=== PATIENT | female | born 2000 | race Caucasian/White ===

== ENCOUNTER 2018-07-14 10:15 | Outpatient (CLI) | payer OTHER | END 2018-07-14 14:30 | disposition home or self-care (01) | LOC: OBT 10:15 → L-D 10:15 → OBT 14:30 | DX: O26.893 Other specified pregnancy related conditions, third trimester (principal); R10.2 Pelvic and perineal pain; Z3A.28 28 weeks gestation of pregnancy | CPT/HCPCS: 76815; 76817 ==

== ENCOUNTER 2018-09-25 01:40 | Inpatient (IN) | payer OTHER ==
[~2018-09-25 01:40] MED LIST: CARBOPROST 250 MCG INJ; METHYLERGONOVINE 0.2 MG INJ
[2018-09-25] MEDS ORDERED: MISOPROSTOL 200 MCG TAB PR ×2 (04:00→12:00)
[2018-09-25] MEDS ORDERED: IBUPROFEN 600 MG TAB PO (04:00)
[2018-09-25] MEDS ORDERED: METHYLERGONOVINE 0.2 MG INJ IM ×2 (04:00→12:00)
[2018-09-25] MEDS ORDERED: OXYTOCIN 30 UNITS/LR 500 ML IV ×3 (04:00→12:00)
[2018-09-25] MEDS ORDERED: CARBOPROST 250 MCG INJ IM (04:00)
[2018-09-25] MEDS ORDERED: BUTORPHANOL 2 MG INJ IV (04:00)
[2018-09-25] MEDS ORDERED: LIDOCAINE 1% (MPF) 30 ML INJ INJ (04:00)
[2018-09-25] MEDS ORDERED: ALBUTEROL HFA 8 GM INHALER INH (04:00)
[2018-09-25] MEDS ORDERED: MISOPROSTOL 50 MCG CAPSULE VAG (04:00)
[2018-09-25 05:07] LABS: ADD MAN DIFF? NO
[2018-09-25] MEDS: LACTATED RINGER'S 1,000 ML IV ×3 (05:08→19:56)
[2018-09-25 05:09] LABS: BASOPHILS % 0.4 % (0.0-2.0); EOSINOPHILS # 0.2 10^3/ul (0.0-0.5); EOSINOPHILS % 1.6 % (0.0-7.0); HEMATOCRIT 31.3 % (37.0-47.0); LYMPHOCYTES # 2.6 10^3/ul (0.8-2.9); LYMPHOCYTES % 27.1 % (18.0-55.0); MEAN CORPUSCULAR HEMOGLOBIN 25.6 pg (29.0-33.0); MEAN CORPUSCULAR HGB CONC 31.9 g/dl (32.0-37.0); MEAN CORPUSCULAR VOLUME 80.3 fl (72.0-104.0); MEAN PLATELET VOLUME 11.3 fl (7.4-10.4); NEUTROPHIL # 5.8 10^3/ul (1.6-7.5); NEUTROPHILS % 60.5 % (30.0-74.0); PLATELET COUNT 244 10^3/UL (140-415); RED CELL DISTRIBUTION WIDTH 16.1 % (11.5-14.5)
[2018-09-25 05:09] LABS: WHITE BLOOD COUNT 9.6 10^3/ul (4.8-10.8)
[2018-09-25] MEDS: CLINDAMYCIN 900 MG/D5W (PMX) 50 ML IVPB (05:09)
[2018-09-25 05:30] LABS: INR 0.95; PARTIAL THROMBOPLASTIN TIME 27.2 Sec (23.0-35.0); PROTIME 12.8 Sec (11.9-14.9)
[2018-09-25] MEDS: MISOPROSTOL 50 MCG CAPSULE PO (06:14)
[2018-09-25] MEDS ORDERED: TERBUTALINE 1 MG/ML INJ SC (06:30)
[2018-09-25] MEDS ORDERED: TERBUTALINE 1 ML (06:46)
[2018-09-25] MEDS ORDERED: ROCURONIUM 50 MG INJ (06:51)
[2018-09-25] MEDS ORDERED: NEOSTIGMINE 3 MG/3 ML SYRINGE (06:51)
[2018-09-25] MEDS ORDERED: MEPERIDINE 100 MG INJ (06:51)
[2018-09-25] MEDS ORDERED: SUCCINYLCHOLINE CHLORIDE 100 MG/5 ML SYG IV (06:51)
[2018-09-25] MEDS ORDERED: PROPOFOL 20 ML (06:51)
[2018-09-25] MEDS ORDERED: GLYCOPYRROLATE 0.4 MG INJ (06:51)
[2018-09-25] MEDS ORDERED: LIDOCAINE 2% (SDV) 5 ML INJ (06:51)
[2018-09-25] MEDS ORDERED: OXYTOCIN 10 UNIT INJ (06:59)
[2018-09-25] MEDS ORDERED: EPHEDrine 25 MG/5 ML SYG (07:09)
[2018-09-25] MEDS ORDERED: CEFAZOLIN 1 GM INJ (07:09)
[2018-09-25] MEDS ORDERED: ONDANSETRON 4 MG INJ (07:50)
[2018-09-25] MEDS ORDERED: METOCLOPRAMIDE 10 MG INJ (07:50)
[2018-09-25 07:56] LABS: CBV COHb 0.3 %; CBV Oxygen Sat 36.6 mmHG; CBV Total Hemglobin 19.5 g/dl; Cord Blood Venous AADO2 612.4 mmHg; Cord Blood Venous pO2 25.3 mmHG (15.0-45.0); Fraction OxyHgb Cord Venous 36.1 %; MODE VENT - AC; Site CORD
[2018-09-25 07:57] LABS: AADO2 Cord Arterial 603.7 mmHg; Arterial Cord Blood pCO2 91.3 mmHG (25-50); CBA Base Excess -15.8 mmol/L; CBA COHb 0.1 %; CBA Oxygen Sat 18.4 mmHG; CBA Total Hemglobin 19.2 g/dl; Fraction OxyHgb Cord Arterial 18.2 %; MODE VENT - AC; MetHgb Cord Arterial 1.2 %; Site CORD
[2018-09-25] MEDS ORDERED: KETOROLAC 30 MG INJ (08:33)
[2018-09-25] MEDS: OXYTOCIN 30 UNITS/LR 500 ML IV ×3 (08:58→13:56)
[2018-09-25] MEDS ORDERED: ONDANSETRON 4 MG INJ IV (09:00)
[2018-09-25] MEDS ORDERED: DIPHENHYDRAMINE 50 MG INJ IV (09:00)
[2018-09-25] MEDS ORDERED: OXYCODONE/ACETAMINOPHEN (5/325) TAB PO ×2 (09:00)
[2018-09-25] MEDS ORDERED: NALOXONE (0.4 MG/ML) INJ IV (09:00)
[2018-09-25 09:29] LABS: HAAIG REFLEX REFLEX FILED
[2018-09-25 09:40] LABS: HEPATITIS B SURFACE ANTIGEN NEGATIVE (NEGATIVE)
[2018-09-25] MEDS: DIPHENOXYLATE/ATROPINE TAB PO ×2 (10:20→11:30)
[2018-09-25 10:45] LABS: HEPATITIS B SURFACE ANTIBODY NEGATIVE (NEGATIVE)
[2018-09-25] MEDS: HYDROmorphONE 0.2 MG/ML PCA IV (11:08)
[2018-09-25 11:19] LABS: HEPATITIS B CORE ANTIBODY NEGATIVE (NEGATIVE); HEPATITIS C VIRAL ANTIBODY NEGATIVE (NEGATIVE); HIV 1&2 ANTIBODY NEGATIVE (NEGATIVE)
[2018-09-25 11:20] LABS: HEPATITIS B SURFACE ANTIGEN NEGATIVE (NEGATIVE)
[2018-09-25] MEDS: KETOROLAC 30 MG INJ IV ×2 (11:30→23:13)
[2018-09-25 11:47] LABS: AMPHETAMINE/METHAMPHETAMINE Negative (NEGATIVE); BARBITURATES Negative (NEGATIVE); BENZODIAZEPINES Negative (NEGATIVE); CANNABINOIDS Negative (NEGATIVE); COCAINE Negative (NEGATIVE); OPIATES Negative (NEGATIVE)
[2018-09-25] MEDS ORDERED: AL HYDROX/MG HYDROX/SIMETH 30 ML CUP PO (12:00)
[2018-09-25] MEDS ORDERED: NACL 0.9% 3 ML SYG IV (12:00)
[2018-09-25] MEDS ORDERED: METHYLERGONOVINE 0.2 MG TAB PO (12:00)
[2018-09-25 15:48] LABS: RAPID PLASMA REAGIN NONREACTIVE (NR)
[2018-09-25 20:01] LABS: ADD MAN DIFF? NO
[2018-09-25 20:05] LABS: ABNORMAL IP MESSAGE 1; MEAN CORPUSCULAR HEMOGLOBIN 25.3 pg (29.0-33.0); MEAN CORPUSCULAR VOLUME 79.1 fl (72.0-104.0); MEAN PLATELET VOLUME 11.7 fl (7.4-10.4); PLATELET COUNT 193 10^3/UL (140-415); RED BLOOD COUNT 2.53 10^6/ul (4.20-5.40); RED CELL DISTRIBUTION WIDTH 15.8 % (11.5-14.5)
[2018-09-25 20:05] LABS: WHITE BLOOD COUNT 11.5 10^3/ul (4.8-10.8)
[2018-09-25 20:15] LABS: HEMOGLOBIN 6.4 g/dl (12.0-16.0); POSITIVE DIFF @See below
[2018-09-25] MEDS: FERROUS SULFATE (EC) 325 MG TAB PO (20:59)
[2018-09-25 21:42] LABS: ANISOCYTOSIS 2+ (0-0); HYPOCHROMASIA 2+ (0-0); LYMPHOCYTES #M 1.1 10^3/ul (0.8-2.9); LYMPHOCYTES % (M) 10 % (18-55); MICROCYTOSIS 2+ (0-0); MONOCYTE #M 0.4 10^3/ul (0.3-0.9); MONOCYTES % (M) 4 % (0-13); PLATELET ESTIMATE NORMAL; SEGMENTED NEUTROPHILS (M) % 86 % (30-74)
[2018-09-26] MEDS: LACTATED RINGER'S 1,000 ML IV ×4 (02:26→19:56)
[2018-09-26] MEDS: KETOROLAC 30 MG INJ IV (05:30)
[2018-09-26] MEDS: IBUPROFEN 600 MG TAB PO ×4 (05:35→23:28)
[2018-09-26 08:14] LABS: ADD MAN DIFF? NO
[2018-09-26 08:27] LABS: ABNORMAL IP MESSAGE 1; BASOPHILS % 0.1 % (0.0-2.0); EOSINOPHILS # 0.1 10^3/ul (0.0-0.5); EOSINOPHILS % 0.5 % (0.0-7.0); HEMATOCRIT 17.9 % (37.0-47.0); LYMPHOCYTES # 1.2 10^3/ul (0.8-2.9); LYMPHOCYTES % 12.1 % (18.0-55.0); MEAN CORPUSCULAR HEMOGLOBIN 25.6 pg (29.0-33.0); MEAN CORPUSCULAR HGB CONC 31.8 g/dl (32.0-37.0); MEAN CORPUSCULAR VOLUME 80.3 fl (72.0-104.0); MEAN PLATELET VOLUME 11.7 fl (7.4-10.4); MONOCYTE # 0.8 10^3/ul (0.3-0.9); MONOCYTES % 8.8 % (0.0-13.0); NEUTROPHIL # 7.4 10^3/ul (1.6-7.5); NEUTROPHILS % 77.9 % (30.0-74.0); PLATELET COUNT 190 10^3/UL (140-415); RED BLOOD COUNT 2.23 10^6/ul (4.20-5.40)
[2018-09-26 08:27] LABS: WHITE BLOOD COUNT 9.5 10^3/ul (4.8-10.8)
[2018-09-26 08:45] LABS: HEMOGLOBIN 5.7 g/dl (12.0-16.0); POSITIVE DIFF @See below
[2018-09-26] MEDS: FERROUS SULFATE (EC) 325 MG TAB PO ×2 (09:08→20:42)
[2018-09-26] MEDS: PRENATAL VITAMIN PO (09:08)
[2018-09-26] MEDS: HYDROCODONE/APAP (5/325) TAB PO (10:55)
[2018-09-26 16:16] LABS: IMMEDIATE SPIN CROSSMATCH 1 2
[2018-09-26] MEDS: LANOLIN HPA 1 PKT TOP (17:32)
[2018-09-26 22:57] LABS: WHITE BLOOD COUNT 9.1 10^3/ul (4.8-10.8)
[2018-09-26 22:57] LABS: ADD MAN DIFF? NO; BASOPHILS % 0.3 % (0.0-2.0); EOSINOPHILS # 0.1 10^3/ul (0.0-0.5); EOSINOPHILS % 1.5 % (0.0-7.0); HEMATOCRIT 25.9 % (37.0-47.0); HEMOGLOBIN 8.5 g/dl (12.0-16.0); LYMPHOCYTES # 2.1 10^3/ul (0.8-2.9); LYMPHOCYTES % 22.9 % (18.0-55.0); MEAN CORPUSCULAR HEMOGLOBIN 26.6 pg (29.0-33.0); MEAN CORPUSCULAR HGB CONC 32.8 g/dl (32.0-37.0); MEAN CORPUSCULAR VOLUME 80.9 fl (72.0-104.0); MEAN PLATELET VOLUME 10.4 fl (7.4-10.4); MONOCYTE # 0.8 10^3/ul (0.3-0.9); MONOCYTES % 8.8 % (0.0-13.0); NEUTROPHIL # 5.9 10^3/ul (1.6-7.5); NEUTROPHILS % 65.7 % (30.0-74.0); PLATELET COUNT 206 10^3/UL (140-415); RED CELL DISTRIBUTION WIDTH 15.8 % (11.5-14.5)
[2018-09-27] MEDS: LACTATED RINGER'S 1,000 ML IV (03:56)
[2018-09-27] MEDS: IBUPROFEN 600 MG TAB PO ×4 (05:50→23:15)
[2018-09-27 08:35] LABS: ADD MAN DIFF? NO
[2018-09-27 08:53] LABS: WHITE BLOOD COUNT 7.1 10^3/ul (4.8-10.8)
[2018-09-27 08:53] LABS: BASOPHILS % 0.3 % (0.0-2.0); EOSINOPHILS # 0.2 10^3/ul (0.0-0.5); EOSINOPHILS % 2.7 % (0.0-7.0); HEMATOCRIT 23.8 % (37.0-47.0); HEMOGLOBIN 7.8 g/dl (12.0-16.0); LYMPHOCYTES # 1.8 10^3/ul (0.8-2.9); LYMPHOCYTES % 25.7 % (18.0-55.0); MEAN CORPUSCULAR HEMOGLOBIN 26.2 pg (29.0-33.0); MEAN CORPUSCULAR HGB CONC 32.8 g/dl (32.0-37.0); MEAN CORPUSCULAR VOLUME 79.9 fl (72.0-104.0); MEAN PLATELET VOLUME 11.2 fl (7.4-10.4); MONOCYTE # 0.7 10^3/ul (0.3-0.9); MONOCYTES % 10.2 % (0.0-13.0); NEUTROPHIL # 4.2 10^3/ul (1.6-7.5); NEUTROPHILS % 60.1 % (30.0-74.0); PLATELET COUNT 193 10^3/UL (140-415); RED BLOOD COUNT 2.98 10^6/ul (4.20-5.40); RED CELL DISTRIBUTION WIDTH 16.2 % (11.5-14.5)
[2018-09-27] MEDS: PRENATAL VITAMIN PO (10:16)
[2018-09-27] MEDS: FERROUS SULFATE (EC) 325 MG TAB PO ×3 (10:16→20:50)
[2018-09-28] MEDS: IBUPROFEN 600 MG TAB PO ×2 (05:24→12:39)
[2018-09-28] MEDS: FERROUS SULFATE (EC) 325 MG TAB PO ×2 (08:27→12:39)
[2018-09-28] MEDS: PRENATAL VITAMIN PO (08:27)
[2018-09-28] MEDS: DIPHTH/TET/ACEL PERTUSS (ADULT) 0.5 ML VIAL IM* (09:00)
[2018-09-28] MEDS ORDERED: MEASLES,MUMPS,RUBELLA VACCINE INJ SC* (09:00)
== END 2018-09-28 15:45 | disposition home or self-care (01) | DRG 787 ==
LOC: OBT 01:40 → L-D 01:41 → OBT 03:37 → L-D 03:37 → PP1 11:32
PROVIDERS: Obstetrics & Gynecology
PROC: 10D00Z1 Extraction of Products of Conception, Low, Open Approach (ICD-10-PCS; principal; 2018-09-25)
DX: O76 Abnormality in fetal heart rate and rhythm complicating labor and delivery (principal); D62 Acute posthemorrhagic anemia; O75.89 Other specified complications of labor and delivery; N85.8 Other specified noninflammatory disorders of uterus; O99.02 Anemia complicating childbirth; Z3A.39 39 weeks gestation of pregnancy; Z37.0 Single live birth
CPT/HCPCS: 36415; 36430; 36600; 74018; 76815; 76818; 80307; 82803; 85025; 85610; 85730; 86592; 86703; 86704; 86706; 86708; 86709; 86803; 86850; 86900; 86901; 86920; 87340; 87591; 99464